=== PATIENT | female | born 1950 | race African-American/Black ===

== ENCOUNTER 2023-10-03 16:05 | HOS | payer OTHER, MEDICARE, SELFPAY ==
[2023-10-03 12:57] VITALS: PULSE 77; RESP 20; TEMP 36.3; O2SAT 100
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
--- NOTE | 2023-10-03 13:55 | PCCCNOTE ---
Met with RN from [facility] who states they have sent pt to ER for behaviours that are difficult to control. Pt currently on hospice through [facility] at home. RN has spoken to Dr Kamara who has accepted her for [facility] admission. Pt to be admitted under [facility] and once medication adjusted to control behavious, plan is for pt to discharge home with [facility] following again.
[2023-10-03] MEDS: LORazepam INJ (*CRX) 2 MG/ML VIAL 0.5 MG IV PUSH (14:19)
[2023-10-03] MEDS: HALOPERIDOL LACTATE 5 MG/ML VIAL IM (15:09)
--- NOTE | 2023-10-03 15:10 | PC.NURSE ---
Pt very agitated, uncooperative, keep getting out of bed, unstable gait.
[2023-10-03 16:08] VITALS: BP 128/66; PULSE 62; RESP 12; TEMP 36.8; O2SAT 100
[2023-10-03] MEDS: MORPHINE SULFATE ORAL CONC SOL (*CRX) 10 MG/0.5 ML SYRINGE 5 MG PO (16:56)
--- NOTE | 2023-10-03 18:09 | ADMGEN ---
This patient, Ashanti Cai, was admitted to [facility] at 1530. Report received from [facility] Palm. Patient/family oriented to hospital policies and general routines including ID bracelet, bed and alarms, visiting hours, pain management, procedures, bathroom and other care routines, personal items, smoking policy, room service/diet, and visiting hours. Information on how to activate the Rapid Response Team has been discussed. Patient/Family are encouraged to report perceived risks to care and to ask questions if they do not understand what they are told or what they should do.
[2023-10-03 20:04] VITALS: BP 107/54; PULSE 60; RESP 18; TEMP 36.3; O2SAT 100
[2023-10-04] MEDS: MORPHINE SULFATE ORAL CONC SOL (*CRX) 10 MG/0.5 ML SYRINGE 5 MG PO ×4 (03:24→23:59)
[2023-10-04] MEDS: LORazepam INJ (*CRX) 2 MG/ML VIAL 1 MG IV PUSH ×2 (03:26→14:41)
[2023-10-04] MEDS: ARTIFICIAL TEARS OPHTH SOLN 15 ML BOTTLE 1 DROP EACH EYE (03:39)
[2023-10-04] MEDS: HALOPERIDOL LACTATE 5 MG/ML VIAL IM ×2 (04:03→20:27)
[2023-10-04] MEDS: HALOPERIDOL 5 MG TABLET PO (10:37)
--- NOTE | 2023-10-04 11:31 | PM.IMHP ---
H&P: HPI History of Present Illness Date/Time: 10/04/23 11:31 Chief Complaint: Uncontrolled agitation Narrative: This 73-year-old elderly female with history of multiple small strokes and cerebral atherosclerosis with associated dementia was admitted to hospice in the recent past due to her declining appetite and functional status associated with significant weight loss. During the past week she is eating minimal amounts and drinking very little. She has become extremely agitated and paranoid and physically violent. She was admitted [facility] yesterday for control of symptoms. Intramuscular Haldol and Ativan sedated her initially and scheduled morphine Ativan and Haldol were ordered. Because she was sleeping during the night the staff did not administer medications. She became more agitated. Utilization of p.r.n. medications and resumption of schedule medications this morning has induced a mental status seemingly free of paranoid delusions and violent inclinations. Review of Systems Review of Systems: ROS unobtainable: Yes unobtainable due to medical condition PMFSH Past Medical History Medical History (Updated 10/04/23 @ 11:34 by Edgar Stephens MD) Cerebral atherosclerosis Vascular dementia with agitation Family History Family History Father No problems noted. Mother No problems noted. Social History Social History (Updated 10/04/23 @ 11:33 by Edgar Stephens MD) Social History: Resides with spouse. DNR and under hospice care prior to this admission. Smoking status: Smoker, status unknown Alcohol intake: unknown Substance use: unknown Meds Home Medications and Allergies Allergies Allergy/AdvReac Type Severity Reaction Status Date / Time No Known Allergies Allergy Verified 10/03/23 16:33 Vital Signs Vital Signs - 24 hr 10/03/23 16:08 10/03/23 15:30 10/03/23 20:04 Temperature 98.2 F 97.4 F L Pulse Rate 62 60 Respiratory Rate 12 18 Blood Pressure 128/66 107/54 L Pulse Oximetry 100 100 Oxygen Delivery Room Air 10/03/23 21:00 10/04/23 08:00 Temperature Pulse Rate Respiratory Rate Blood Pressure Pulse Oximetry Oxygen Delivery Room Air Room Air Exam Narrative: General: Gaunt elderly female resting comfortably in hospital bed. Eyes: Nonicteric. Oral: Mucosa pink moist and intact. Neck: No JVD. Chest: Clear to auscultation. Effort normal. Heart: Normal S1 and S2. Rate regular. No audible murmurs or gallops. Abdomen: Bowel sounds active. Soft. Nontender. No mass palpable. Extremities: No pitting edema. Musculoskeletal: No gross deformity to visual inspection. Neurologic: Cranial nerves symmetric to visual inspection. Psychological: Drowsy but arouses to verbal or tactile stimuli. Responds with monosyllabic words. Does not follow commands. Assessment and Plan Assessment and plan (1) Palliative care encounter: Code(s): Z51.5 - Encounter for palliative care Status: Acute Assessment and Plan: Meets inpatient hospice criteria due to inability to control agitation and psychosis without parenteral medications. October 04: Symptoms manage well with a low paired all, lorazepam, morphine. Await disposition decision. (2) Vascular dementia with agitation: Code(s): F01.511 - Vascular dementia, unspecified severity, with agitation Status: Acute (3) Cerebral atherosclerosis: Code(s): I67.2 - Cerebral atherosclerosis Status: Acute
[2023-10-04] MEDS: LORazepam (*CRX) 1 MG TABLET PO ×2 (12:16→17:07)
[2023-10-04 14:30] VITALS: BP 110/55; PULSE 66; RESP 14; TEMP 36.6; O2SAT 99
[2023-10-04 20:00] VITALS: BP 130/59; PULSE 73; RESP 18; TEMP 36.4; O2SAT 100
[2023-10-05] MEDS: LORazepam INJ (*CRX) 2 MG/ML VIAL 1 MG IV PUSH (00:05)
[2023-10-05] MEDS: MORPHINE SULFATE ORAL CONC SOL (*CRX) 10 MG/0.5 ML SYRINGE 5 MG PO ×3 (04:02→15:07)
[2023-10-05] MEDS: ARTIFICIAL TEARS OPHTH SOLN 15 ML BOTTLE 1 DROP EACH EYE ×2 (04:04→14:56)
[2023-10-05] MEDS: HALOPERIDOL 5 MG TABLET PO (09:02)
[2023-10-05 09:26] VITALS: BP 128/63
[2023-10-05] MEDS: LORazepam (*CRX) 1 MG TABLET PO ×2 (11:16→16:59)
[2023-10-05 14:54] VITALS: PULSE 105; RESP 15; TEMP 37.1; O2SAT 98
--- NOTE | 2023-10-05 15:51 | PM.IMPN ---
Progress Note: A&P Assessment and Plan (1) Palliative care encounter: Code(s): Z51.5 - Encounter for palliative care Status: Acute Assessment and Plan: Meets inpatient hospice criteria due to inability to control agitation and psychosis without parenteral medications. October 04: Symptoms manage well with a low paired all, lorazepam, morphine. Await disposition decision. October 05: Plan for discharge once symptoms are managed well for 24 hours with plan for Haldol Decanoate as outpatient. (2) Vascular dementia with agitation: Code(s): F01.511 - Vascular dementia, unspecified severity, with agitation Status: Acute (3) Cerebral atherosclerosis: Code(s): I67.2 - Cerebral atherosclerosis Status: Acute Subjective Date/time seen: 10/05/23 15:51 Interval history: Required prn doses of medication overnight due to scheduled meds being held because she was sleeping and not responding even to sternal rub. No PO intake other than meds. No agitation when receiving. Review of Systems Review of Systems: ROS unobtainable: Yes unobtainable due to medical condition Exam Narrative: General: Gaunt elderly female resting comfortably in hospital bed. Eyes: Nonicteric. Oral: Mucosa pink moist and intact. Neck: No JVD. Chest: Clear to auscultation. Effort normal. Heart: Normal S1 and S2. Rate regular. No audible murmurs or gallops. Abdomen: Bowel sounds active. Soft. Nontender. No mass palpable. Extremities: No pitting edema. Musculoskeletal: No gross deformity to visual inspection. Neurologic: Cranial nerves symmetric to visual inspection. Psychological: Drowsy but arouses to verbal or tactile stimuli. Responds with monosyllabic words. Does not follow commands. Objective Data Vital Signs Vital Signs: Vital Signs - 24 hr 10/04/23 20:00 10/04/23 20:00 10/05/23 09:26 Temperature 97.5 F L Pulse Rate 73 Respiratory Rate 18 Blood Pressure 130/59 L 128/63 Pulse Oximetry 100 Oxygen Delivery Room Air 10/05/23 08:00 10/05/23 14:54 Temperature 98.7 F Pulse Rate 105 H Respiratory Rate 15 Blood Pressure Pulse Oximetry 98 Oxygen Delivery Room Air Intake/Output Intake/Output: Intake & Output 10/02/23 10/03/23 10/04/23 10/05/23 23:59 23:59 23:59 23:59 Intake Total 0 120 Balance 0 120 Meds/Results Medications: Active Medications Generic Name Dose Route Start Last Admin Trade Name Freq PRN Reason Stop Dose Admin Acetaminophen 650 mg 10/03/23 15:50 Acetaminophen 650 Mg Suppository RECTAL Q4H PRN Fever Artificial Tears 1 drop 10/03/23 15:50 10/05/23 14:56 Artificial Tears Ophth Soln 15 Ml Bottle EACH EYE 1 drop Q12H JANEE Administration Artificial Tears 1 drop 10/03/23 15:49 Artificial Tears Ophth Soln 15 Ml Bottle EACH EYE PRN PRN Dry Eye(s) Bisacodyl 10 mg 10/03/23 15:50 Bisacodyl 10 Mg Suppository RECTAL DAILY PRN Constipation Glycopyrrolate 0.1 mg 10/03/23 15:50 Glycopyrrolate Inj (*Sp) 0.2 Mg/Ml Vial IV PUSH Q4H PRN secretions Haloperidol 5 mg 10/03/23 21:00 10/05/23 09:02 Haloperidol 5 Mg Tablet PO 5 mg Q12HR JANEE Administration Haloperidol Lactate 5 mg 10/03/23 15:45 10/04/23 20:27 Haloperidol Lactate 5 Mg/Ml Vial IM 5 mg Q6H PRN Administration AGITATION Lorazepam 1 mg 10/03/23 18:00 10/05/23 11:16 Lorazepam (*Crx) 1 Mg Tablet PO 1 mg Q6H JANEE Administration Lorazepam 1 mg 10/03/23 15:43 10/05/23 00:05 Lorazepam Inj (*Crx) 2 Mg/Ml Vial IV PUSH 1 mg Q4H PRN Administration ANXIETY/AGITATION Morphine Sulfate 5 mg 10/03/23 16:00 10/05/23 15:07 Morphine Sulfate Oral Conc Rosy (*Crx) 10 Mg/0.5 Ml Syringe PO 5 mg Q6H JANEE Administration Morphine Sulfate 2 mg 10/03/23 15:46 Morphine Sulfate (*Crx) 2 Mg/Ml Inj IV PUSH Q2H PRN PAIN/DYSPNEA Prochlorperazine Edisylate
[2023-10-05 19:40] VITALS: BP 115/57; PULSE 109; RESP 16; TEMP 36.3; O2SAT 100
[2023-10-05 19:43] VITALS: BMI 11.5
[2023-10-06] MEDS: MORPHINE SULFATE ORAL CONC SOL (*CRX) 10 MG/0.5 ML SYRINGE 5 MG PO ×4 (00:47→22:51)
[2023-10-06] MEDS: ARTIFICIAL TEARS OPHTH SOLN 15 ML BOTTLE 1 DROP EACH EYE (03:55)
[2023-10-06 04:00] VITALS: BP 126/46; PULSE 81; RESP 16; TEMP 36.4; O2SAT 99
[2023-10-06 08:50] VITALS: BP 114/48; PULSE 77; RESP 14; TEMP 36.2; O2SAT 98
[2023-10-06] MEDS: LORazepam INJ (*CRX) 2 MG/ML VIAL 1 MG IV PUSH (09:41)
--- NOTE | 2023-10-06 12:53 | PM.IMPN ---
Progress Note: A&P Assessment and Plan (1) Palliative care encounter: Code(s): Z51.5 - Encounter for palliative care Status: Acute Assessment and Plan: Meets inpatient hospice criteria due to inability to control agitation and psychosis without parenteral medications. October 04: Symptoms manage well with a low paired all, lorazepam, morphine. Await disposition decision. October 05: Plan for discharge once symptoms are managed well for 24 hours with plan for Haldol Decanoate as outpatient. October 06: Trial of medication reduction initiated per family request. Discussed with hospice and floor RN's. Discussed with her spouse, Kun, at bedside. (2) Vascular dementia with agitation: Code(s): F01.511 - Vascular dementia, unspecified severity, with agitation Status: Acute (3) Cerebral atherosclerosis: Code(s): I67.2 - Cerebral atherosclerosis Status: Inactive Subjective Date/time seen: 10/06/23 12:53 Interval history: Family wishes to decrease medications to determine whether she will eat. She 1 cup of pudding last evening and 1 cup of applesauce earlier today. Some choking was noted by staff while family was feeding her. Review of Systems Review of Systems: ROS unobtainable: Yes unobtainable due to medical condition Exam Narrative: General: Gaunt elderly female resting comfortably in hospital bed. Eyes: Closed. Oral: Mucosa pink moist and intact. Neck: No JVD. Chest: Clear to auscultation. Effort normal. Heart: Normal S1 and S2. Rate regular. No audible murmurs or gallops. Abdomen: Bowel sounds active. Soft. Nontender. No mass palpable. Extremities: No pitting edema. Musculoskeletal: No gross deformity to visual inspection. Neurologic: Cranial nerves symmetric to visual inspection. Psychological: Sleeping and minimally responsive to verbal and tactile stimuli. Objective Data Vital Signs Vital Signs: Vital Signs - 24 hr 10/05/23 14:54 10/05/23 19:40 10/05/23 20:00 Temperature 98.7 F 97.4 F L Pulse Rate 105 H 109 H Respiratory Rate 15 16 Blood Pressure 115/57 L Pulse Oximetry 98 100 Oxygen Delivery Room Air 10/06/23 04:00 10/06/23 08:50 10/06/23 08:00 Temperature 97.6 F 97.2 F L Pulse Rate 81 77 Respiratory Rate 16 14 Blood Pressure 126/46 L 114/48 L Pulse Oximetry 99 98 Oxygen Delivery Room Air Intake/Output Intake/Output: Intake & Output 10/03/23 10/04/23 10/05/23 10/06/23 23:59 23:59 23:59 23:59 Intake Total 0 120 0 Balance 0 120 0 Meds/Results Medications: Active Medications Generic Name Dose Route Start Last Admin Trade Name Freq PRN Reason Stop Dose Admin Acetaminophen 650 mg 10/03/23 15:50 Acetaminophen 650 Mg Suppository RECTAL Q4H PRN Fever Artificial Tears 1 drop 10/03/23 15:50 10/06/23 03:55 Artificial Tears Ophth Soln 15 Ml Bottle EACH EYE 1 drop Q12H JANEE Administration Artificial Tears 1 drop 10/03/23 15:49 Artificial Tears Ophth Soln 15 Ml Bottle EACH EYE PRN PRN Dry Eye(s) Bisacodyl 10 mg 10/03/23 15:50 Bisacodyl 10 Mg Suppository RECTAL DAILY PRN Constipation Glycopyrrolate 0.1 mg 10/03/23 15:50 Glycopyrrolate Inj (*Sp) 0.2 Mg/Ml Vial IV PUSH Q4H PRN secretions Haloperidol 5 mg 10/06/23 21:00 Haloperidol 5 Mg Tablet PO QHS JANEE Haloperidol Lactate 5 mg 10/03/23 15:45 10/04/23 20:27 Haloperidol Lactate 5 Mg/Ml Vial IM 5 mg Q6H PRN Administration AGITATION Lorazepam 1 mg 10/03/23 15:43 10/06/23 09:41 Lorazepam Inj (*Crx) 2 Mg/Ml Vial IV PUSH 1 mg Q4H PRN Administration ANXIETY/AGITATION Morphine Sulfate 2 mg 10/03/23 15:46 Morphine Sulfate (*Crx) 2 Mg/Ml Inj IV PUSH Q2H PRN PAIN/DYSPNEA Prochlorperazine Edisylate 10 mg 10/03/23 15:48 Prochlorperazine Edisylate 10 Mg/2 Ml Vial IV PUSH Q4H PRN Nausea And Vomiting
[2023-10-06] MEDS: LORazepam (*CRX) 0.5 MG TABLET PO (18:42)
[2023-10-06 21:23] VITALS: BP 142/50; PULSE 106; RESP 16; TEMP 36.7; O2SAT 95
[2023-10-06] MEDS: HALOPERIDOL 5 MG TABLET PO (22:52)
[2023-10-07] MEDS: LORazepam (*CRX) 0.5 MG TABLET PO ×3 (01:01→12:24)
[2023-10-07 08:00] VITALS: BP 114/48; PULSE 75; RESP 14; TEMP 36.1; O2SAT 98
[2023-10-07] MEDS: MORPHINE SULFATE ORAL CONC SOL (*CRX) 10 MG/0.5 ML SYRINGE 5 MG PO (08:07)
[2023-10-07] MEDS: ARTIFICIAL TEARS OPHTH SOLN 15 ML BOTTLE 1 DROP EACH EYE (12:24)
[2023-10-07] MEDS: LORazepam INJ (*CRX) 2 MG/ML VIAL 1 MG IV PUSH (17:19)
--- NOTE | 2023-10-07 19:31 | PM.IMPN ---
Progress Note: A&P Assessment and Plan (1) Palliative care encounter: Code(s): Z51.5 - Encounter for palliative care Status: Acute Assessment and Plan: Meets inpatient hospice criteria due to inability to control agitation and psychosis without parenteral medications. October 04: Symptoms manage well with a low paired all, lorazepam, morphine. Await disposition decision. October 05: Plan for discharge once symptoms are managed well for 24 hours with plan for Haldol Decanoate as outpatient. October 06: Trial of medication reduction initiated per family request. Discussed with hospice and floor RN's. Discussed with her spouse, Kun, at bedside. October 07: Meet inpatient hospice criteria due to intermittently requiring parenteral medications for control of agitation. Continue to seek balance between sedation and nutrition and socialization. Discussed care and prognosis with spouse at bedside. Await disposition. Subjective Date/time seen: 10/07/23 19:31 Interval history: Becomes agitated in the afternoons and requires p.r.n. dosing. Ate 1 cup of ice cream and some bites of mashed potatoes and a half cup of tea today according to her spouse was at bedside. Currently she is sleeping peacefully. Spouse states that he and the family have chosen [facility] [place], [place]. They await acceptance. Review of Systems Review of Systems: ROS unobtainable: Yes unobtainable due to medical condition Exam Narrative: General: Gaunt elderly female resting comfortably in hospital bed. Eyes: Closed. Oral: Mucosa pink moist and intact. Neck: No JVD. Chest: Clear to auscultation. Effort normal. Heart: Normal S1 and S2. Rate regular. No audible murmurs or gallops. Abdomen: Bowel sounds active. Soft. Nontender. No mass palpable. Extremities: No pitting edema. Musculoskeletal: No gross deformity to visual inspection. Neurologic: Cranial nerves symmetric to visual inspection. Psychological: Sleeping and minimally responsive to verbal and tactile stimuli. Objective Data Vital Signs Vital Signs: Vital Signs - 24 hr 10/06/23 21:23 10/07/23 08:00 Temperature 98.0 F 97.0 F L Pulse Rate 106 H 75 Respiratory Rate 16 14 Blood Pressure 142/50 H 114/48 L Pulse Oximetry 95 98 Intake/Output Intake/Output: Intake & Output 10/04/23 10/05/23 10/06/23 10/07/23 23:59 23:59 23:59 23:59 Intake Total 120 0 0 Balance 120 0 0 Meds/Results Medications: Active Medications Generic Name Dose Route Start Last Admin Trade Name Freq PRN Reason Stop Dose Admin Acetaminophen 650 mg 10/03/23 15:50 Acetaminophen 650 Mg Suppository RECTAL Q4H PRN Fever Artificial Tears 1 drop 10/03/23 15:49 Artificial Tears Ophth Soln 15 Ml Bottle EACH EYE PRN PRN Dry Eye(s) Artificial Tears 1 drop 10/07/23 00:00 10/07/23 00:59 Artificial Tears Ophth Soln 15 Ml Bottle EACH EYE Not Given Q12H JANEE Bisacodyl 10 mg 10/03/23 15:50 Bisacodyl 10 Mg Suppository RECTAL DAILY PRN Constipation Glycopyrrolate 0.1 mg 10/03/23 15:50 Glycopyrrolate Inj (*Sp) 0.2 Mg/Ml Vial IV PUSH Q4H PRN secretions Haloperidol 5 mg 10/06/23 21:00 10/06/23 22:52 Haloperidol 5 Mg Tablet PO 5 mg QHS JANEE Administration Haloperidol Lactate 5 mg 10/03/23 15:45 10/04/23 20:27 Haloperidol Lactate 5 Mg/Ml Vial IM 5 mg Q6H PRN Administration AGITATION Lorazepam 1 mg 10/03/23 15:43 10/07/23 17:19 Lorazepam Inj (*Crx) 2 Mg/Ml Vial IV PUSH 1 mg Q4H PRN Administration ANXIETY/AGITATION Lorazepam 0.5 mg 10/06/23 12:52 10/07/23 05:42 Lorazepam (*Crx) 0.5 Mg Tablet PO 0.5 mg Q6HR JANEE Administration Morphine Sulfate 2 mg 10/03/23 15:46 Morphine Sulfate (*Crx) 2 Mg/Ml Inj IV PUSH Q2H PRN PAIN/DYSPNEA Morphine Sulfate 5 mg 10/06/23 21:00 10/07/23 08:07 Morphine Sulfate Oral Conc Rosy (*Crx) 10
--- NOTE | 2023-10-07 20:43 | PC.NURSE ---
Pt more awake today. Took a couple of bites from this RN at lunch. Became very agitated at aide attempting to feed her, telling her she better back off. Approximately 1700 pt became increasingly more agitated. Unable to give PO, so returned PO med and gave IVP PRN dose of ativan. agreeable and at bedside. made aware.
[2023-10-07 20:46] VITALS: BP 117/58; PULSE 66; RESP 14; O2SAT 99
[2023-10-08] MEDS: LORazepam (*CRX) 0.5 MG TABLET PO ×4 (01:17→23:48)
[2023-10-08] MEDS: MORPHINE SULFATE ORAL CONC SOL (*CRX) 10 MG/0.5 ML SYRINGE 5 MG PO ×2 (09:17→21:42)
--- NOTE | 2023-10-08 12:34 | PM.DS ---
DS: Admitting Diagnosis Discharge Date 10/18/2023 Admitting Diagnosis cerebrovascular disease with vascular dementia and uncontrolled behaviors DS: Discharge Diagnosis Discharge Diagnosis (1) Palliative care encounter: Code(s): Z51.5 - Encounter for palliative care Status: Acute Assessment and Plan: Meets inpatient hospice criteria due to inability to control agitation and psychosis without parenteral medications. October 04: Symptoms manage well with a low paired all, lorazepam, morphine. Await disposition decision. October 05: Plan for discharge once symptoms are managed well for 24 hours with plan for Haldol Decanoate as outpatient. October 06: Trial of medication reduction initiated per family request. Discussed with hospice and floor RN's. Discussed with her spouse, Kun, at bedside. October 07: Meet inpatient hospice criteria due to intermittently requiring parenteral medications for control of agitation. Continue to seek balance between sedation and nutrition and socialization. Discussed care and prognosis with spouse at bedside. Await disposition. October 08: Denied admission to [facility] in [place] but accepted at [facility] in [place]. Unable to transfer due to protocol COVID-19 swab testing POSITIVE. October 09: Attempted to contact spouse, Kun, by phone and left VM. Increased medication due to agitation and potential injury. Morphine to 5 mg po q 8hr and Ativan to 1 mg po q 8hr. October 12: Comfortable. Anticipated discharge 10/13. October 13: Remains comfortable [facility] requires 10 day isolation time after COVID diagnosis. Discussed care with spouse at bedside. October 14: Alternative discharge [facility] to start as [facility] not acceptable to spouse as he feels it is not [facility] or Mrs. Cai. He is unable to care for her home due to his chronic illnesses and her decline in condition. She will continue on her 10-day COVID as inpatient as required by [facility]. October 15: Discussed with , Kun, at bedside that he feels [facility] is the only safe option for discharge for her. Due to COVID-19, they will not admit her until October 18. October 17: Anticipate discharge to [facility] 10/18. DS: Summary Hospital Course Reason for hospitalization: uncontrolled agitaion Hospital Course: Admitted to [facility] 10/04 due to uncontrolled agitation and paranoid psychosis. Symptoms were well controlled with palliative sedation utilizing scheduled haloperidol, lorazepam, and morphine. However, her spouse wished that she be more alertand able to eat, so at his request her medications were reduced 50%. Subsequently, although she did eat 1-2 cups of soft food per day, she also required multiple doses of prn lorazepam due to agitation, trying to undress, get out of bed. She was diagnosed with COVID-19 10 days prior to discharge and was required by AL to wait an additional 10 days prior to discharge. She was accepted for [facility] admission on 10/18/2023 and was discharged to [facility] for further management of her symptoms. Time Spent with Patient Time attestation: Total time spent providing and/or coordinating discharge services: Exam Narrative: Resting comfortably Discharge Plan Discharge Discharging Clinician: Edgar Stephens Patient Disposition: Hospice - Medical Facility Activity: other - see discharge instructions Diet: as tolerated Discharge Instructions: Bedrest. Liquids and soft foods as tolerated. Stand Alone Forms: General Discharge Information Discharge Medications: New Artificial Tears([id number]) 1-0.2-0.2 % Drops 1 drp EACH EYE Q12H Qty: 15 0RF bisacodyl 10 mg Suppository 10 mg RECTAL DAILY PRN (Reason: Constipation) Qty: 5 0RF haloperidol 5 mg Tablet 5 mg PO QPM Qty: 14 0RF lorazepam 0.5 mg Tablet 1 mg PO Q12H Qty: 14 0RF lorazep
[2023-10-08 13:01] VITALS: BP 123/56; PULSE 96; RESP 19; TEMP 36.6; O2SAT 95
[2023-10-08 16:23] LABS: SARS-CoV-2 RNA PCR Positive (Negative)
--- NOTE | 2023-10-08 19:29 | PM.IMPN ---
Progress Note: A&P Assessment and Plan (1) Palliative care encounter: Code(s): Z51.5 - Encounter for palliative care Status: Acute Assessment and Plan: Meets inpatient hospice criteria due to inability to control agitation and psychosis without parenteral medications. October 04: Symptoms manage well with a low paired all, lorazepam, morphine. Await disposition decision. October 05: Plan for discharge once symptoms are managed well for 24 hours with plan for Haldol Decanoate as outpatient. October 06: Trial of medication reduction initiated per family request. Discussed with hospice and floor RN's. Discussed with her spouse, Kun, at bedside. October 07: Meet inpatient hospice criteria due to intermittently requiring parenteral medications for control of agitation. Continue to seek balance between sedation and nutrition and socialization. Discussed care and prognosis with spouse at bedside. Await disposition. October 08: Denied admission to [facility] in [place] but accepted at [facility] in [place]. Unable to transfer due to protocol COVID-19 swab testing POSITIVE. (2) COVID-19: Code(s): U07.1 - COVID-19 Status: Acute Assessment and Plan: Asymptomatic Subjective Date/time seen: 10/08/23 19:29 Interval history: Late afternoon agitation beginning. Spat out her scheduled PM meds. Minimal Po intake. Review of Systems Review of Systems: ROS unobtainable: Yes unobtainable due to medical condition Exam Narrative: General:? Gaunt elderly female resting comfortably in hospital bed. Eyes:? Closed. Oral:? Mucosa pink moist and intact. Neck:? No JVD. Chest:? Clear to auscultation.? Effort normal. Heart:? Normal S1 and S2.? Rate regular.? No audible murmurs or gallops. Abdomen:? Bowel sounds active.? Soft.? Nontender.? No mass palpable. Extremities:? No pitting edema.? Musculoskeletal:? No gross deformity to visual inspection. Neurologic:? Cranial nerves symmetric to visual inspection. Psychological:? Eyes closed and responds to verbal and tactile stimuli with unintelligible muttering. ? Objective Data Vital Signs Vital Signs: Vital Signs - 24 hr 10/07/23 20:46 10/08/23 13:01 Temperature 97.9 F Pulse Rate 66 96 Respiratory Rate 14 19 Blood Pressure 117/58 L 123/56 L Pulse Oximetry 99 95 Intake/Output Intake/Output: Intake & Output 10/05/23 10/06/23 10/07/23 10/08/23 23:59 23:59 23:59 23:59 Intake Total 0 0 240 Balance 0 0 240 Meds/Results Medications: Active Medications Generic Name Dose Route Start Last Admin Trade Name Freq PRN Reason Stop Dose Admin Acetaminophen 650 mg 10/03/23 15:50 Acetaminophen 650 Mg Suppository RECTAL Q4H PRN Fever Artificial Tears 1 drop 10/03/23 15:49 Artificial Tears Ophth Soln 15 Ml Bottle EACH EYE PRN PRN Dry Eye(s) Artificial Tears 1 drop 10/07/23 00:00 10/08/23 14:16 Artificial Tears Ophth Soln 15 Ml Bottle EACH EYE Not Given Q12H JANEE Bisacodyl 10 mg 10/03/23 15:50 Bisacodyl 10 Mg Suppository RECTAL DAILY PRN Constipation Glycopyrrolate 0.1 mg 10/03/23 15:50 Glycopyrrolate Inj (*Sp) 0.2 Mg/Ml Vial IV PUSH Q4H PRN secretions Haloperidol 5 mg 10/08/23 18:00 Haloperidol 5 Mg Tablet PO QPM JANEE Haloperidol Lactate 5 mg 10/03/23 15:45 10/04/23 20:27 Haloperidol Lactate 5 Mg/Ml Vial IM 5 mg Q6H PRN Administration AGITATION Lorazepam 1 mg 10/03/23 15:43 10/07/23 17:19 Lorazepam Inj (*Crx) 2 Mg/Ml Vial IV PUSH 1 mg Q4H PRN Administration ANXIETY/AGITATION Lorazepam 0.5 mg 10/06/23 12:52 10/08/23 18:27 Lorazepam (*Crx) 0.5 Mg Tablet PO 0.5 mg Q6HR JANEE Administration Morphine Sulfate 2 mg 10/03/23 15:46 Morphine Sulfate (*Crx) 2 Mg/Ml Inj IV PUSH Q2H PRN PAIN/DYSPNEA Morphine Sulfate 5 mg 10/06/23 21:00 10/08/23 09:17 Morphine Sulfate Oral Conc S
[2023-10-08 20:00] VITALS: BP 131/48; PULSE 89; RESP 12; TEMP 36.3; O2SAT 99
[2023-10-09 02:30] VITALS: BP 130/50; PULSE 90; RESP 18; TEMP 36.1; O2SAT 75
[2023-10-09] MEDS: LORazepam (*CRX) 0.5 MG TABLET PO ×2 (05:34→18:46)
[2023-10-09 10:15] VITALS: BP 152/65; PULSE 95; RESP 16; TEMP 36.4; O2SAT 90
[2023-10-09] MEDS: MORPHINE SULFATE (*CRX) 2 MG/ML INJ IV PUSH (10:53)
--- NOTE | 2023-10-09 18:54 | PM.IMPN ---
Progress Note: A&P Assessment and Plan (1) Palliative care encounter: Code(s): Z51.5 - Encounter for palliative care Status: Acute Assessment and Plan: Meets inpatient hospice criteria due to inability to control agitation and psychosis without parenteral medications. October 04: Symptoms manage well with a low paired all, lorazepam, morphine. Await disposition decision. October 05: Plan for discharge once symptoms are managed well for 24 hours with plan for Haldol Decanoate as outpatient. October 06: Trial of medication reduction initiated per family request. Discussed with hospice and floor RN's. Discussed with her spouse, Kun, at bedside. October 07: Meet inpatient hospice criteria due to intermittently requiring parenteral medications for control of agitation. Continue to seek balance between sedation and nutrition and socialization. Discussed care and prognosis with spouse at bedside. Await disposition. October 08: Denied admission to [facility] in [place] but accepted at [facility] in [place]. Unable to transfer due to protocol COVID-19 swab testing POSITIVE. October 09: Attempted to contact spouse, Kun, by phone and left VM. Increased medication due to agitation and potential injury. Morphine to 5 mg po q 8hr and Ativan to 1 mg po q 8hr. (2) COVID-19: Code(s): U07.1 - COVID-19 Status: Acute Assessment and Plan: Asymptomatic Subjective Date/time seen: 10/09/23 12:15 Interval history: Fell this AM due to agitation, climbing out of bed. Received MS 2 mg IV x 1 afterwards. No family was at bedside. No PO intake today. Review of Systems Review of Systems: ROS unobtainable: Yes unobtainable due to medical condition Exam Narrative: General:? Gaunt elderly female resting comfortably in hospital bed. Eyes:? Closed. Oral:? Mucosa pink moist and intact. Neck:? No JVD. Chest:? Clear to auscultation.? Effort normal. Heart:? Normal S1 and S2.? Rate regular.? No audible murmurs or gallops. Abdomen:? Bowel sounds active.? Soft.? Nontender.? No mass palpable. Extremities:? No pitting edema.? Musculoskeletal:? No gross deformity to visual inspection. Neurologic:? Cranial nerves symmetric to visual inspection. Psychological:? Sleeping and unresponsive to verbal or tactile stimuli. ? Objective Data Vital Signs Vital Signs: Vital Signs - 24 hr 10/08/23 20:00 10/09/23 02:30 Temperature 97.3 F L 97.0 F L Pulse Rate 89 90 Respiratory Rate 12 18 Blood Pressure 131/48 L 130/50 L Pulse Oximetry 99 75 L Intake/Output Intake/Output: Intake & Output 10/06/23 10/07/23 10/08/23 10/09/23 23:59 23:59 23:59 23:59 Intake Total 0 0 240 120 Balance 0 0 240 120 Meds/Results Medications: Active Medications Generic Name Dose Route Start Last Admin Trade Name Freq PRN Reason Stop Dose Admin Acetaminophen 650 mg 10/03/23 15:50 Acetaminophen 650 Mg Suppository RECTAL Q4H PRN Fever Artificial Tears 1 drop 10/03/23 15:49 Artificial Tears Ophth Soln 15 Ml Bottle EACH EYE PRN PRN Dry Eye(s) Artificial Tears 1 drop 10/07/23 00:00 10/08/23 23:47 Artificial Tears Ophth Soln 15 Ml Bottle EACH EYE Not Given Q12H JANEE Bisacodyl 10 mg 10/03/23 15:50 Bisacodyl 10 Mg Suppository RECTAL DAILY PRN Constipation Glycopyrrolate 0.1 mg 10/03/23 15:50 Glycopyrrolate Inj (*Sp) 0.2 Mg/Ml Vial IV PUSH Q4H PRN secretions Haloperidol 5 mg 10/08/23 18:00 10/08/23 19:51 Haloperidol 5 Mg Tablet PO Not Given QPM JANEE Haloperidol Lactate 5 mg 10/03/23 15:45 10/04/23 20:27 Haloperidol Lactate 5 Mg/Ml Vial IM 5 mg Q6H PRN Administration AGITATION Lorazepam 1 mg 10/03/23 15:43 10/07/23 17:19 Lorazepam Inj (*Crx) 2 Mg/Ml Vial IV PUSH 1 mg Q4H PRN Administration ANXIETY/AGITATION Lorazepam 0.5 mg 10/06/23 12:52 10/09/23 18:46 Lorazepam (*Crx) 0.5 Mg Tablet PO
[2023-10-09 20:00] VITALS: BP 125/52; PULSE 82; RESP 14; TEMP 37.1; O2SAT 96
[2023-10-09] MEDS: HALOPERIDOL 5 MG TABLET PO (20:05)
--- NOTE | 2023-10-09 20:05 | PC.NURSE ---
This RN obtaining consent in another room with a POA when I heard a loud thud. Approx 30 seconds later, PCT came to this RN to inform pt on floor. This RN called charge to room to finish consent as surgery on way to get patient and POA had to leave. After consent obtained, RN to bedside. Assessment performed, provider called (who called ), IV restarted, pain medication administered. Alarm resumed, pt made comfortable with no complaints. Notified house sup as charge on phone to [facility]. Plans to move to in front of nurses station to keep better eye on pt. Chair pad had been under pt, but not hooked up in to wall correctly. Chair pad alarming in room only. Pt found on right side, mumbling non-sensically (her normal means of communication). When pt arrived to room, this RN to bedside with charge to address concerns. understandably upset. He stated that he was told that there would be a housekeeper and laundry assistant 24 hours a day. I reminded him that the agreement with Dr. Stephens that this RN had been told upon receiving pt on Thursday was for someone in the family to be present 24 hours a day while attempting to lift the sedating medications. He stated that was not the agreement. He then stated he was only responsible for doing it for 24 hours. Previous nights when was leaving approx [phone], I reminded that we could get him linens to allow him to stay. On Thursday, the pt spouse had left and let me know that he had to leave to view facility and I let him know that we would provide a sitter during that time, but he would need to return to continue watching. He agreed and returned as previously agreed upon. Pt spouse stated you don't even know how long she was down for . I explained the series of events to him, allowing him to understand she was found immediately. He stated understanding, but still obviously upset. Pt monitored frequently for any pains/reactions. None noted. Report passed to nights.
[2023-10-09] MEDS: MORPHINE SULFATE ORAL CONC SOL (*CRX) 10 MG/0.5 ML SYRINGE 5 MG PO (21:34)
[2023-10-09] MEDS: LORazepam (*CRX) 1 MG TABLET PO (23:30)
[2023-10-09] MEDS: ARTIFICIAL TEARS OPHTH SOLN 15 ML BOTTLE 1 DROP EACH EYE (23:31)
[2023-10-10] MEDS: MORPHINE SULFATE ORAL CONC SOL (*CRX) 10 MG/0.5 ML SYRINGE 5 MG PO ×3 (05:05→22:36)
[2023-10-10] MEDS: LORazepam (*CRX) 1 MG TABLET PO (05:05)
--- NOTE | 2023-10-10 07:19 | PM.IMPN ---
Progress Note: A&P Assessment and Plan (1) Palliative care encounter: Code(s): Z51.5 - Encounter for palliative care Status: Acute Assessment and Plan: Meets inpatient hospice criteria due to inability to control agitation and psychosis without parenteral medications. October 04: Symptoms manage well with a low paired all, lorazepam, morphine. Await disposition decision. October 05: Plan for discharge once symptoms are managed well for 24 hours with plan for Haldol Decanoate as outpatient. October 06: Trial of medication reduction initiated per family request. Discussed with hospice and floor RN's. Discussed with her spouse, Kun, at bedside. October 07: Meet inpatient hospice criteria due to intermittently requiring parenteral medications for control of agitation. Continue to seek balance between sedation and nutrition and socialization. Discussed care and prognosis with spouse at bedside. Await disposition. October 08: Denied admission to [facility] in [place] but accepted at [facility] in [place]. Unable to transfer due to protocol COVID-19 swab testing POSITIVE. October 09: Attempted to contact spouse, Kun, by phone and left VM. Increased medication due to agitation and potential injury. Morphine to 5 mg po q 8hr and Ativan to 1 mg po q 8hr. (2) COVID-19: Code(s): U07.1 - COVID-19 Status: Acute Assessment and Plan: Asymptomatic Subjective Date/time seen: 10/10/23 07:19 Interval history: Quiet night with med changes. Review of Systems Review of Systems: ROS unobtainable: Yes unobtainable due to medical condition Exam Narrative: General:? Gaunt elderly female resting comfortably in hospital bed. Eyes:? Closed. Oral:? Mucosa pink moist and intact. Neck:? No JVD. Chest:? Clear to auscultation.? Effort normal. Heart:? Normal S1 and S2.? Rate regular.? No audible murmurs or gallops. Abdomen:? Bowel sounds active.? Soft.? Nontender.? No mass palpable. Extremities:? No pitting edema.? Musculoskeletal:? No gross deformity to visual inspection. Neurologic:? Cranial nerves symmetric to visual inspection. Psychological:? Sleeping and unresponsive to verbal or tactile stimuli. ? Objective Data Vital Signs Vital Signs: Vital Signs - 24 hr 10/09/23 10:15 10/09/23 20:00 10/09/23 20:00 Temperature 97.6 F 98.8 F Pulse Rate 95 82 Respiratory Rate 16 14 Blood Pressure 152/65 H 125/52 L Pulse Oximetry 90 96 Oxygen Delivery Room Air Intake/Output Intake/Output: Intake & Output 10/07/23 10/08/23 10/09/23 10/10/23 23:59 23:59 23:59 23:59 Intake Total 0 240 120 Balance 0 240 120 Meds/Results Medications: Active Medications Generic Name Dose Route Start Last Admin Trade Name Freq PRN Reason Stop Dose Admin Acetaminophen 650 mg 10/03/23 15:50 Acetaminophen 650 Mg Suppository RECTAL Q4H PRN Fever Artificial Tears 1 drop 10/03/23 15:49 Artificial Tears Ophth Soln 15 Ml Bottle EACH EYE PRN PRN Dry Eye(s) Artificial Tears 1 drop 10/07/23 00:00 10/09/23 23:31 Artificial Tears Ophth Soln 15 Ml Bottle EACH EYE 1 drop Q12H JANEE Administration Bisacodyl 10 mg 10/03/23 15:50 Bisacodyl 10 Mg Suppository RECTAL DAILY PRN Constipation Glycopyrrolate 0.1 mg 10/03/23 15:50 Glycopyrrolate Inj (*Sp) 0.2 Mg/Ml Vial IV PUSH Q4H PRN secretions Haloperidol 5 mg 10/08/23 18:00 10/09/23 20:05 Haloperidol 5 Mg Tablet PO 5 mg QPM JANEE Administration Haloperidol Lactate 5 mg 10/03/23 15:45 10/04/23 20:27 Haloperidol Lactate 5 Mg/Ml Vial IM 5 mg Q6H PRN Administration AGITATION Lorazepam 1 mg 10/03/23 15:43 10/07/23 17:19 Lorazepam Inj (*Crx) 2 Mg/Ml Vial IV PUSH 1 mg Q4H PRN Administration ANXIETY/AGITATION Lorazepam 1 mg 10/10/23 00:00 10/10/23 05:05 Lorazepam (*Crx) 1 Mg Tablet PO 1 mg Q6HR JANEE Administration Morphine S
[2023-10-10 08:00] VITALS: BP 122/64; PULSE 85; RESP 12; TEMP 37; O2SAT 96
[2023-10-10] MEDS: LORazepam INJ (*CRX) 2 MG/ML VIAL 1 MG IV PUSH (20:19)
[2023-10-11] MEDS: MORPHINE SULFATE ORAL CONC SOL (*CRX) 10 MG/0.5 ML SYRINGE 5 MG PO ×3 (06:30→21:15)
[2023-10-11] MEDS: LORazepam (*CRX) 1 MG TABLET PO ×4 (06:30→23:26)
[2023-10-11 08:00] VITALS: BP 130/62; PULSE 62; RESP 12; TEMP 37; O2SAT 96
[2023-10-11] MEDS: ARTIFICIAL TEARS OPHTH SOLN 15 ML BOTTLE 1 DROP EACH EYE ×2 (12:55→23:27)
--- NOTE | 2023-10-11 17:15 | PC.NURSE ---
attempted to administer haldol and ativan, family requests we wait until later to give meds
--- NOTE | 2023-10-11 17:19 | PM.IMPN ---
Progress Note: A&P Assessment and Plan (1) Palliative care encounter: Code(s): Z51.5 - Encounter for palliative care Status: Acute Assessment and Plan: Meets inpatient hospice criteria due to inability to control agitation and psychosis without parenteral medications. October 04: Symptoms manage well with a low paired all, lorazepam, morphine. Await disposition decision. October 05: Plan for discharge once symptoms are managed well for 24 hours with plan for Haldol Decanoate as outpatient. October 06: Trial of medication reduction initiated per family request. Discussed with hospice and floor RN's. Discussed with her spouse, Kun, at bedside. October 07: Meet inpatient hospice criteria due to intermittently requiring parenteral medications for control of agitation. Continue to seek balance between sedation and nutrition and socialization. Discussed care and prognosis with spouse at bedside. Await disposition. October 08: Denied admission to [facility] in [place] but accepted at [facility] in [place]. Unable to transfer due to protocol COVID-19 swab testing POSITIVE. October 09: Attempted to contact spouse, Kun, by phone and left VM. Increased medication due to agitation and potential injury. Morphine to 5 mg po q 8hr and Ativan to 1 mg po q 8hr. (2) COVID-19: Code(s): U07.1 - COVID-19 Status: Acute Assessment and Plan: Asymptomatic Subjective Date/time seen: 10/11/23 09:00 Interval history: Resting comfortably after med changes 2/3 PM. Review of Systems Review of Systems: ROS unobtainable: Yes unobtainable due to medical condition Exam Narrative: General:? Gaunt elderly female resting comfortably in hospital bed. Eyes:? Closed. Oral:? Mucosa pink moist and intact. Neck:? No JVD. Chest:? Clear to auscultation.? Effort normal. Heart:? Normal S1 and S2.? Rate regular.? No audible murmurs or gallops. Abdomen:? Bowel sounds active.? Soft.? Nontender.? No mass palpable. Extremities:? No pitting edema.? Musculoskeletal:? No gross deformity to visual inspection. Neurologic:? Cranial nerves symmetric to visual inspection. Psychological:? Sleeping and unresponsive to verbal or tactile stimuli. ? Objective Data Vital Signs Vital Signs: Vital Signs - 24 hr 10/11/23 08:00 10/11/23 08:00 Temperature 98.6 F Pulse Rate 62 Respiratory Rate 12 Blood Pressure 130/62 Pulse Oximetry 96 Oxygen Delivery Room Air Intake/Output Intake/Output: Intake & Output 10/08/23 10/09/23 10/10/23 10/11/23 23:59 23:59 23:59 23:59 Intake Total 240 120 120 Balance 240 120 120 Meds/Results Medications: Active Medications Generic Name Dose Route Start Last Admin Trade Name Freq PRN Reason Stop Dose Admin Acetaminophen 650 mg 10/03/23 15:50 Acetaminophen 650 Mg Suppository RECTAL Q4H PRN Fever Artificial Tears 1 drop 10/03/23 15:49 Artificial Tears Ophth Soln 15 Ml Bottle EACH EYE PRN PRN Dry Eye(s) Artificial Tears 1 drop 10/07/23 00:00 10/11/23 12:55 Artificial Tears Ophth Soln 15 Ml Bottle EACH EYE 1 drop Q12H JANEE Administration Bisacodyl 10 mg 10/03/23 15:50 Bisacodyl 10 Mg Suppository RECTAL DAILY PRN Constipation Glycopyrrolate 0.1 mg 10/03/23 15:50 Glycopyrrolate Inj (*Sp) 0.2 Mg/Ml Vial IV PUSH Q4H PRN secretions Haloperidol 5 mg 10/08/23 18:00 10/10/23 17:37 Haloperidol 5 Mg Tablet PO Not Given QPM JANEE Haloperidol Lactate 5 mg 10/03/23 15:45 10/04/23 20:27 Haloperidol Lactate 5 Mg/Ml Vial IM 5 mg Q6H PRN Administration AGITATION Lorazepam 1 mg 10/03/23 15:43 10/10/23 20:19 Lorazepam Inj (*Crx) 2 Mg/Ml Vial IV PUSH 1 mg Q4H PRN Administration ANXIETY/AGITATION Lorazepam 1 mg 10/10/23 00:00 10/11/23 12:55 Lorazepam (*Crx) 1 Mg Tablet PO 1 mg Q6HR JANEE Administration Morphine Sulfate 2 mg 10/03/23 15:46 02
[2023-10-11] MEDS: HALOPERIDOL 5 MG TABLET PO (18:32)
[2023-10-11 20:00] VITALS: BP 98/51; PULSE 68; RESP 12; TEMP 36.3; O2SAT 100
[2023-10-12] MEDS: LORazepam (*CRX) 1 MG TABLET PO ×3 (05:17→18:31)
[2023-10-12] MEDS: MORPHINE SULFATE ORAL CONC SOL (*CRX) 10 MG/0.5 ML SYRINGE 5 MG PO ×3 (05:17→22:28)
[2023-10-12 08:00] VITALS: BP 122/42; PULSE 95; RESP 14; TEMP 37.3; O2SAT 97
[2023-10-12] MEDS: ARTIFICIAL TEARS OPHTH SOLN 15 ML BOTTLE 1 DROP EACH EYE (12:48)
[2023-10-12] MEDS: HALOPERIDOL 5 MG TABLET PO (18:31)
[2023-10-12 20:00] VITALS: BP 130/66; PULSE 87; RESP 20; TEMP 36.5; O2SAT 98
--- NOTE | 2023-10-12 20:40 | PM.IMPN ---
Progress Note: A&P Assessment and Plan (1) Palliative care encounter: Code(s): Z51.5 - Encounter for palliative care Status: Acute Assessment and Plan: Meets inpatient hospice criteria due to inability to control agitation and psychosis without parenteral medications. October 04: Symptoms manage well with a low paired all, lorazepam, morphine. Await disposition decision. October 05: Plan for discharge once symptoms are managed well for 24 hours with plan for Haldol Decanoate as outpatient. October 06: Trial of medication reduction initiated per family request. Discussed with hospice and floor RN's. Discussed with her spouse, Kun, at bedside. October 07: Meet inpatient hospice criteria due to intermittently requiring parenteral medications for control of agitation. Continue to seek balance between sedation and nutrition and socialization. Discussed care and prognosis with spouse at bedside. Await disposition. October 08: Denied admission to [facility] in [place] but accepted at [facility] in [place]. Unable to transfer due to protocol COVID-19 swab testing POSITIVE. October 09: Attempted to contact spouse, Kun, by phone and left VM. Increased medication due to agitation and potential injury. Morphine to 5 mg po q 8hr and Ativan to 1 mg po q 8hr. October 12: Comfortable. Anticipated discharge 10/13. (2) COVID-19: Code(s): U07.1 - COVID-19 Status: Acute Assessment and Plan: Asymptomatic Subjective Date/time seen: 10/12/23 20:40 Interval history: Resting comfortably. Relatively quiet day. Review of Systems Review of Systems: ROS unobtainable: Yes unobtainable due to medical condition Exam Narrative: Sleeping soundly. Objective Data Vital Signs Vital Signs: Vital Signs - 24 hr 10/12/23 08:00 10/12/23 08:00 Temperature 99.2 F Pulse Rate 95 95 Respiratory Rate 14 14 Blood Pressure 122/42 L Pulse Oximetry 97 97 Oxygen Delivery Room Air Intake/Output Intake/Output: Intake & Output 10/09/23 10/10/23 10/11/23 10/12/23 23:59 23:59 23:59 23:59 Intake Total 120 120 0 Balance 120 120 0 Meds/Results Medications: Active Medications Generic Name Dose Route Start Last Admin Trade Name Freq PRN Reason Stop Dose Admin Acetaminophen 650 mg 10/03/23 15:50 Acetaminophen 650 Mg Suppository RECTAL Q4H PRN Fever Artificial Tears 1 drop 10/03/23 15:49 Artificial Tears Ophth Soln 15 Ml Bottle EACH EYE PRN PRN Dry Eye(s) Artificial Tears 1 drop 10/07/23 00:00 10/12/23 12:48 Artificial Tears Ophth Soln 15 Ml Bottle EACH EYE 1 drop Q12H JANEE Administration Bisacodyl 10 mg 10/03/23 15:50 Bisacodyl 10 Mg Suppository RECTAL DAILY PRN Constipation Glycopyrrolate 0.1 mg 10/03/23 15:50 Glycopyrrolate Inj (*Sp) 0.2 Mg/Ml Vial IV PUSH Q4H PRN secretions Haloperidol 5 mg 10/08/23 18:00 10/12/23 18:31 Haloperidol 5 Mg Tablet PO 5 mg QPM JANEE Administration Haloperidol Lactate 5 mg 10/03/23 15:45 10/04/23 20:27 Haloperidol Lactate 5 Mg/Ml Vial IM 5 mg Q6H PRN Administration AGITATION Lorazepam 1 mg 10/03/23 15:43 10/10/23 20:19 Lorazepam Inj (*Crx) 2 Mg/Ml Vial IV PUSH 1 mg Q4H PRN Administration ANXIETY/AGITATION Lorazepam 1 mg 10/10/23 00:00 10/12/23 18:31 Lorazepam (*Crx) 1 Mg Tablet PO 1 mg Q6HR JANEE Administration Morphine Sulfate 2 mg 10/03/23 15:46 10/09/23 10:53 Morphine Sulfate (*Crx) 2 Mg/Ml Inj IV PUSH 2 mg Q2H PRN Administration PAIN/DYSPNEA Morphine Sulfate 5 mg 10/09/23 22:00 10/12/23 17:03 Morphine Sulfate Oral Conc Rosy (*Crx) 10 Mg/0.5 Ml Syringe PO 5 mg Q8H JANEE Administration Prochlorperazine Edisylate 10 mg 10/03/23 15:48 Prochlorperazine Edisylate 10 Mg/2 Ml Vial IV PUSH Q4H PRN Nausea And Vomiting
[2023-10-13] MEDS: MORPHINE SULFATE ORAL CONC SOL (*CRX) 10 MG/0.5 ML SYRINGE 5 MG PO (06:26)
[2023-10-13] MEDS: LORazepam (*CRX) 1 MG TABLET PO ×3 (06:26→17:39)
[2023-10-13 08:00] VITALS: BP 126/48; PULSE 78; RESP 18; TEMP 36.6; O2SAT 94
[2023-10-13] MEDS: ARTIFICIAL TEARS OPHTH SOLN 15 ML BOTTLE 1 DROP EACH EYE (11:39)
--- NOTE | 2023-10-13 16:04 | PM.IMPN ---
Progress Note: A&P Assessment and Plan (1) Palliative care encounter: Code(s): Z51.5 - Encounter for palliative care Status: Acute Assessment and Plan: Meets inpatient hospice criteria due to inability to control agitation and psychosis without parenteral medications. October 04: Symptoms manage well with a low paired all, lorazepam, morphine. Await disposition decision. October 05: Plan for discharge once symptoms are managed well for 24 hours with plan for Haldol Decanoate as outpatient. October 06: Trial of medication reduction initiated per family request. Discussed with hospice and floor RN's. Discussed with her spouse, Kun, at bedside. October 07: Meet inpatient hospice criteria due to intermittently requiring parenteral medications for control of agitation. Continue to seek balance between sedation and nutrition and socialization. Discussed care and prognosis with spouse at bedside. Await disposition. October 08: Denied admission to [facility] in [place] but accepted at [facility] in [place]. Unable to transfer due to protocol COVID-19 swab testing POSITIVE. October 09: Attempted to contact spouse, Kun, by phone and left VM. Increased medication due to agitation and potential injury. Morphine to 5 mg po q 8hr and Ativan to 1 mg po q 8hr. October 12: Comfortable. Anticipated discharge 10/13. October 13: Remains comfortable [facility] 10 day isolation time after COVID diagnosis. Discussed care with spouse at bedside. (2) COVID-19: Code(s): U07.1 - COVID-19 Status: Acute Assessment and Plan: Asymptomatic Subjective Date/time seen: 10/13/23 16:04 Interval history: Pulled IV out earlier today please feel otherwise. Ate a few bites of potatoes ground meat and corn. Review of Systems Review of Systems: ROS unobtainable: Yes unobtainable due to medical condition Exam Narrative: General:? Gaunt elderly female resting comfortably in hospital bed. Eyes:? Closed. Oral:? Mucosa pink moist and intact. Neck:? No JVD. Chest:? Clear to auscultation.? Effort normal. Heart:? Normal S1 and S2.? Rate regular.? No audible murmurs or gallops. Abdomen:? Bowel sounds active.? Soft.? Nontender.? No mass palpable. Extremities:? No pitting edema.? Musculoskeletal:? No gross deformity to visual inspection. Neurologic:? Cranial nerves symmetric to visual inspection. Psychological:? Sleeping and unresponsive to verbal or tactile stimuli. ? Objective Data Vital Signs Vital Signs: Vital Signs - 24 hr 10/12/23 20:00 10/13/23 08:00 Temperature 97.7 F 97.9 F Pulse Rate 87 78 Respiratory Rate 20 18 Blood Pressure 130/66 126/48 L Pulse Oximetry 98 94 Intake/Output Intake/Output: Intake & Output 10/10/23 10/11/23 10/12/23 10/13/23 23:59 23:59 23:59 23:59 Intake Total 120 0 0 Balance 120 0 0 Meds/Results Medications: Active Medications Generic Name Dose Route Start Last Admin Trade Name Freq PRN Reason Stop Dose Admin Acetaminophen 650 mg 10/03/23 15:50 Acetaminophen 650 Mg Suppository RECTAL Q4H PRN Fever Artificial Tears 1 drop 10/03/23 15:49 Artificial Tears Ophth Soln 15 Ml Bottle EACH EYE PRN PRN Dry Eye(s) Artificial Tears 1 drop 10/07/23 00:00 10/13/23 11:39 Artificial Tears Ophth Soln 15 Ml Bottle EACH EYE 1 drop Q12H JANEE Administration Bisacodyl 10 mg 10/03/23 15:50 Bisacodyl 10 Mg Suppository RECTAL DAILY PRN Constipation Glycopyrrolate 0.1 mg 10/03/23 15:50 Glycopyrrolate Inj (*Sp) 0.2 Mg/Ml Vial IV PUSH Q4H PRN secretions Haloperidol 5 mg 10/08/23 18:00 10/12/23 18:31 Haloperidol 5 Mg Tablet PO 5 mg QPM JANEE Administration Haloperidol Lactate 5 mg 10/03/23 15:45 10/04/23 20:27 Haloperidol Lactate 5 Mg/Ml Vial IM 5 mg Q6H PRN Administration AGITATION Lorazepam 1 mg 10/03/23 15:43 10/10/23 20:19 Lorazepam Inj (*Crx)
[2023-10-13] MEDS: HALOPERIDOL 5 MG TABLET PO (17:39)
[2023-10-13 20:00] VITALS: BP 120/49; PULSE 75; RESP 14; TEMP 36.6; O2SAT 95
[2023-10-14] MEDS: LORazepam (*CRX) 1 MG TABLET PO ×2 (05:55→12:40)
[2023-10-14 08:00] VITALS: BP 132/54; PULSE 90; RESP 18; TEMP 36.1; O2SAT 99
--- NOTE | 2023-10-14 12:19 | PM.IMPN ---
Progress Note: A&P Assessment and Plan (1) Palliative care encounter: Code(s): Z51.5 - Encounter for palliative care Status: Acute Assessment and Plan: Meets inpatient hospice criteria due to inability to control agitation and psychosis without parenteral medications. October 04: Symptoms manage well with a low paired all, lorazepam, morphine. Await disposition decision. October 05: Plan for discharge once symptoms are managed well for 24 hours with plan for Haldol Decanoate as outpatient. October 06: Trial of medication reduction initiated per family request. Discussed with hospice and floor RN's. Discussed with her spouse, Kun, at bedside. October 07: Meet inpatient hospice criteria due to intermittently requiring parenteral medications for control of agitation. Continue to seek balance between sedation and nutrition and socialization. Discussed care and prognosis with spouse at bedside. Await disposition. October 08: Denied admission to [facility] in [place] but accepted at [facility] in [place]. Unable to transfer due to protocol COVID-19 swab testing POSITIVE. October 09: Attempted to contact spouse, Kun, by phone and left VM. Increased medication due to agitation and potential injury. Morphine to 5 mg po q 8hr and Ativan to 1 mg po q 8hr. October 12: Comfortable. Anticipated discharge 10/13. October 13: Remains comfortable longterm requires 10 day isolation time after COVID diagnosis. Discussed care with spouse at bedside. October 14: Alternative discharge plan to start as opposed [facility] not acceptable to spouse as he feels it is not [facility] or [facility] [facility]. He is unable to care for her home due to his chronic illnesses and her decline in condition. She will continue on her 10-day COVID as inpatient as required by [facility]. (2) COVID-19: Code(s): U07.1 - COVID-19 Status: Acute Assessment and Plan: Asymptomatic Subjective Date/time seen: 10/14/23 12:19 Interval history: Continues to consume only a few bites of food per day. Sleeps most of the time. Review of Systems Review of Systems: ROS unobtainable: Yes unobtainable due to medical condition Exam Narrative: General:? Gaunt elderly female resting comfortably in hospital bed. Eyes:? Closed. Oral:? Mucosa pink moist and intact. Neck:? No JVD. Chest:? Clear to auscultation.? Effort normal. Heart:? Normal S1 and S2.? Rate regular.? No audible murmurs or gallops. Abdomen:? Bowel sounds active.? Soft.? Nontender.? No mass palpable. Extremities:? No pitting edema.? Musculoskeletal:? No gross deformity to visual inspection. Neurologic:? Cranial nerves symmetric to visual inspection. Psychological:? Sleeping and unresponsive to verbal or tactile stimuli. ? Objective Data Vital Signs Vital Signs: Vital Signs - 24 hr 10/13/23 20:00 10/13/23 20:00 10/14/23 08:00 Temperature 98 F 96.9 F L Pulse Rate 75 90 Respiratory Rate 14 18 Blood Pressure 120/49 L 132/54 L Pulse Oximetry 95 95 99 Oxygen Delivery Room Air Intake/Output Intake/Output: Intake & Output 10/11/23 10/12/23 10/13/23 10/14/23 23:59 23:59 23:59 23:59 Intake Total 0 120 118 Balance 0 120 118 Meds/Results Medications: Active Medications Generic Name Dose Route Start Last Admin Trade Name Freq PRN Reason Stop Dose Admin Acetaminophen 650 mg 10/03/23 15:50 Acetaminophen 650 Mg Suppository RECTAL Q4H PRN Fever Artificial Tears 1 drop 10/03/23 15:49 Artificial Tears Ophth Soln 15 Ml Bottle EACH EYE PRN PRN Dry Eye(s) Artificial Tears 1 drop 10/07/23 00:00 10/14/23 02:16 Artificial Tears Ophth Soln 15 Ml Bottle EACH EYE Not Given Q12H JANEE Bisacodyl 10 mg 10/03/23 15:50 Bisacodyl 10 Mg Suppository RECTAL DAILY PRN Constipation Haloperidol 5 mg 10/08/23 18:00 10/13/23 17:39 Haloperidol 5 Mg Tablet PO 5 mg QPM [facility]
[2023-10-14] MEDS: ARTIFICIAL TEARS OPHTH SOLN 15 ML BOTTLE 1 DROP EACH EYE (12:40)
--- NOTE | 2023-10-14 17:06 | PC.NURSE ---
Pt has been harder to arouse today. PO med pass is getting difficult.
[2023-10-14 20:00] VITALS: O2SAT 99
[2023-10-14] MEDS: MORPHINE SULFATE ORAL CONC SOL (*CRX) 10 MG/0.5 ML SYRINGE 5 MG PO (21:47)
--- NOTE | 2023-10-15 05:49 | PC.NURSE ---
patient difficult to arouse this AM. Unable to given PO medications.
[2023-10-15 08:00] VITALS: BP 104/43; PULSE 16; RESP 65; TEMP 36.2; O2SAT 96
[2023-10-15] MEDS: LORazepam (*CRX) 0.5 MG TABLET PO (10:35)
[2023-10-15] MEDS: LORazepam (*CRX) 1 MG TABLET PO (17:58)
[2023-10-15] MEDS: HALOPERIDOL 5 MG TABLET PO (17:58)
--- NOTE | 2023-10-15 18:10 | PM.IMPN ---
Progress Note: A&P Assessment and Plan (1) Palliative care encounter: Code(s): Z51.5 - Encounter for palliative care Status: Acute Assessment and Plan: Meets inpatient hospice criteria due to inability to control agitation and psychosis without parenteral medications. October 04: Symptoms manage well with a low paired all, lorazepam, morphine. Await disposition decision. October 05: Plan for discharge once symptoms are managed well for 24 hours with plan for Haldol Decanoate as outpatient. October 06: Trial of medication reduction initiated per family request. Discussed with hospice and floor RN's. Discussed with her spouse, Kun, at bedside. October 07: Meet inpatient hospice criteria due to intermittently requiring parenteral medications for control of agitation. Continue to seek balance between sedation and nutrition and socialization. Discussed care and prognosis with spouse at bedside. Await disposition. October 08: Denied admission to [facility] in [place] but accepted at [facility] in [place]. Unable to transfer due to protocol COVID-19 swab testing POSITIVE. October 09: Attempted to contact spouse, Kun, by phone and left VM. Increased medication due to agitation and potential injury. Morphine to 5 mg po q 8hr and Ativan to 1 mg po q 8hr. October 12: Comfortable. Anticipated discharge 10/13. October 13: [facility] after COVID diagnosis. Discussed care with spouse at bedside. October 14: Alternative discharge plan to start as opposed [facility] not acceptable to spouse as he feels it is not [facility] or [employer] [facility]. He is unable to care for her home due to his chronic illnesses and her decline in condition. She will continue on her 10-day COVID as inpatient as required by [facility]. October 15: Discussed with , Kun, at bedside that he feels [facility] is the only safe option for discharge for her. Due to COVID-19, they will not admit her until October 18. Subjective Date/time seen: 10/15/23 18:10 Interval history: Ate about half of her pureed supper. Eating little restless this evening. Fairly quiet through the day. Review of Systems Review of Systems: ROS unobtainable: Yes unobtainable due to medical condition Exam Narrative: General:? Gaunt elderly female resting comfortably in hospital bed. Eyes:? Closed. Oral:? Mucosa pink moist and intact. Neck:? No JVD. Chest:? Clear to auscultation.? Effort normal. Heart:? Normal S1 and S2.? Rate regular.? No audible murmurs or gallops. Abdomen:? Bowel sounds active.? Soft.? Nontender.? No mass palpable. Extremities:? No pitting edema.? Musculoskeletal:? No gross deformity to visual inspection. Neurologic:? Cranial nerves symmetric to visual inspection. Psychological:? Awake. Oriented person only. Restless. at bedside. ? Objective Data Vital Signs Vital Signs: Vital Signs - 24 hr 10/14/23 20:00 10/15/23 08:00 10/15/23 10:00 Temperature 97.1 F L Pulse Rate 16 L Respiratory Rate 65 H Blood Pressure 104/43 L Pulse Oximetry 99 96 Oxygen Delivery Room Air Room Air Intake/Output Intake/Output: Intake & Output 10/12/23 10/13/23 10/14/23 10/15/23 23:59 23:59 23:59 23:59 Intake Total 0 120 238 118 Balance 0 120 238 118 Meds/Results Medications: Active Medications Generic Name Dose Route Start Last Admin Trade Name Freq PRN Reason Stop Dose Admin Acetaminophen 650 mg 10/03/23 15:50 Acetaminophen 650 Mg Suppository RECTAL Q4H PRN Fever Artificial Tears 1 drop 10/03/23 15:49 Artificial Tears Ophth Soln 15 Ml Bottle EACH EYE PRN PRN Dry Eye(s) Artificial Tears 1 drop 10/07/23 00:00 10/15/23 12:23 Artificial Tears Ophth Soln 15 Ml Bottle EACH EYE Not Given Q12H JANEE Bisacodyl 10 mg 10/03/23 15:50 Bisacodyl 10 Mg Suppository RECTAL DAILY PRN
[2023-10-15 20:00] VITALS: O2SAT 96
[2023-10-16] MEDS: MORPHINE SULFATE ORAL CONC SOL (*CRX) 10 MG/0.5 ML SYRINGE 5 MG PO ×2 (05:14→21:03)
[2023-10-16] MEDS: LORazepam (*CRX) 1 MG TABLET PO ×4 (05:14→23:31)
[2023-10-16 08:00] VITALS: BP 112/38; PULSE 67; RESP 18; TEMP 36.4; O2SAT 100
[2023-10-16] MEDS: LORazepam (*CRX) 0.5 MG TABLET PO (10:03)
--- NOTE | 2023-10-16 16:14 | PM.IMPN ---
Progress Note: A&P Assessment and Plan (1) Palliative care encounter: Code(s): Z51.5 - Encounter for palliative care Status: Acute Assessment and Plan: Meets inpatient hospice criteria due to inability to control agitation and psychosis without parenteral medications. October 04: Symptoms manage well with a low paired all, lorazepam, morphine. Await disposition decision. October 05: Plan for discharge once symptoms are managed well for 24 hours with plan for Haldol Decanoate as outpatient. October 06: Trial of medication reduction initiated per family request. Discussed with hospice and floor RN's. Discussed with her spouse, Kun, at bedside. October 07: Meet inpatient hospice criteria due to intermittently requiring parenteral medications for control of agitation. Continue to seek balance between sedation and nutrition and socialization. Discussed care and prognosis with spouse at bedside. Await disposition. October 08: Denied admission to [facility] in [place] but accepted at [facility] in [place]. Unable to transfer due to protocol COVID-19 swab testing POSITIVE. October 09: Attempted to contact spouse, Kun, by phone and left VM. Increased medication due to agitation and potential injury. Morphine to 5 mg po q 8hr and Ativan to 1 mg po q 8hr. October 12: Comfortable. Anticipated discharge 10/13. October 13: Remains comfortable group home requires 10 day isolation time after COVID diagnosis. Discussed care with spouse at bedside. October 14: Alternative discharge plan to start as opposed [facility] not acceptable to spouse as he feels it is not [facility] or [facility] [facility]. He is unable to care for her home due to his chronic illnesses and her decline in condition. She will continue on her 10-day COVID as inpatient as required by [facility]. October 15: Discussed with , Kun, at bedside that he feels [facility] is the only safe option for discharge for her. Due to COVID-19, they will not admit her until October 18. Subjective Date/time seen: 10/16/23 16:14 Interval history: Awakens intermittently. Eats a few bites. Review of Systems Review of Systems: ROS unobtainable: Yes unobtainable due to medical condition Exam Narrative: General:? Gaunt elderly female resting comfortably in hospital bed. Eyes:? Closed. Oral:? Mucosa pink moist and intact. Neck:? No JVD. Chest:? Clear to auscultation.? Effort normal. Heart:? Normal S1 and S2.? Rate regular.? No audible murmurs or gallops. Abdomen:? Bowel sounds active.? Soft.? Nontender.? No mass palpable. Extremities:? No pitting edema.? Musculoskeletal:? No gross deformity to visual inspection. Neurologic:? Cranial nerves symmetric to visual inspection. Psychological:? Awake. Oriented person only. Moves spontaneously in bed. ? Objective Data Vital Signs Vital Signs: Vital Signs - 24 hr 10/15/23 20:00 10/16/23 08:00 10/16/23 08:00 Temperature 97.6 F Pulse Rate 67 Respiratory Rate 18 Blood Pressure 112/38 L Pulse Oximetry 96 100 Oxygen Delivery Room Air Room Air Intake/Output Intake/Output: Intake & Output 10/13/23 10/14/23 10/15/23 10/16/23 23:59 23:59 23:59 23:59 Intake Total 120 238 236 Balance 120 238 236 Meds/Results Medications: Active Medications Generic Name Dose Route Start Last Admin Trade Name Freq PRN Reason Stop Dose Admin Acetaminophen 650 mg 10/03/23 15:50 Acetaminophen 650 Mg Suppository RECTAL Q4H PRN Fever Artificial Tears 1 drop 10/03/23 15:49 Artificial Tears Ophth Soln 15 Ml Bottle EACH EYE PRN PRN Dry Eye(s) Artificial Tears 1 drop 10/07/23 00:00 10/16/23 10:03 Artificial Tears Ophth Soln 15 Ml Bottle EACH EYE Not Given Q12H JANEE Bisacodyl 10 mg 10/03/23 15:50 Bisacodyl 10 Mg Suppository RECTAL DAILY PRN Constipation Haloperidol 5 mg 10/08/23 18:00 10/15/23 17:58 H
[2023-10-16] MEDS: HALOPERIDOL 5 MG TABLET PO (17:30)
[2023-10-16 20:00] VITALS: BP 135/51; PULSE 67; PULSE 92; RESP 16; RESP 18; TEMP 36.5; O2SAT 100
[2023-10-16] MEDS: ARTIFICIAL TEARS OPHTH SOLN 15 ML BOTTLE 1 DROP EACH EYE (23:31)
[2023-10-17] MEDS: LORazepam (*CRX) 1 MG TABLET PO ×3 (05:50→20:47)
[2023-10-17] MEDS: MORPHINE SULFATE ORAL CONC SOL (*CRX) 10 MG/0.5 ML SYRINGE 5 MG PO ×3 (05:50→20:51)
[2023-10-17] MEDS: LORazepam (*CRX) 0.5 MG TABLET PO (11:41)
--- NOTE | 2023-10-17 11:42 | PM.IMPN ---
Progress Note: A&P Assessment and Plan (1) Palliative care encounter: Code(s): Z51.5 - Encounter for palliative care Status: Acute Assessment and Plan: Meets inpatient hospice criteria due to inability to control agitation and psychosis without parenteral medications. October 04: Symptoms manage well with a low paired all, lorazepam, morphine. Await disposition decision. October 05: Plan for discharge once symptoms are managed well for 24 hours with plan for Haldol Decanoate as outpatient. October 06: Trial of medication reduction initiated per family request. Discussed with hospice and floor RN's. Discussed with her spouse, Kun, at bedside. October 07: Meet inpatient hospice criteria due to intermittently requiring parenteral medications for control of agitation. Continue to seek balance between sedation and nutrition and socialization. Discussed care and prognosis with spouse at bedside. Await disposition. October 08: Denied admission to [facility] in [place] but accepted at [facility] in [place]. Unable to transfer due to protocol COVID-19 swab testing POSITIVE. October 09: Attempted to contact spouse, Kun, by phone and left VM. Increased medication due to agitation and potential injury. Morphine to 5 mg po q 8hr and Ativan to 1 mg po q 8hr. October 12: Comfortable. Anticipated discharge 10/13. October 13: Remains comfortable longterm requires 10 day isolation time after COVID diagnosis. Discussed care with spouse at bedside. October 14: Alternative discharge plan to start as opposed [facility] not acceptable to spouse as he feels it is not [facility] or [facility] [facility]. He is unable to care for her home due to his chronic illnesses and her decline in condition. She will continue on her 10-day COVID as inpatient as required by [facility]. October 15: Discussed with , Kun, at bedside that he feels [facility] is the only safe option for discharge for her. Due to COVID-19, they will not admit her until October 18. October 17: Anticipate discharge to [facility] 10/18. Subjective Date/time seen: 10/17/23 11:42 Interval history: Awakens intermittently. Eats a few bites. Review of Systems Review of Systems: ROS unobtainable: Yes unobtainable due to medical condition Exam Narrative: General:? Gaunt elderly female resting comfortably in hospital bed. Eyes:? Closed. Oral:? Mucosa pink moist and intact. Neck:? No JVD. Chest:? Clear to auscultation.? Effort normal. Heart:? Normal S1 and S2.? Rate regular.? No audible murmurs or gallops. Abdomen:? Bowel sounds active.? Soft.? Nontender.? No mass palpable. Extremities:? No pitting edema.? Musculoskeletal:? No gross deformity to visual inspection. Neurologic:? Cranial nerves symmetric to visual inspection. Psychological:? Awake. Oriented person only. Moves spontaneously in bed. ? Objective Data Vital Signs Vital Signs: Vital Signs - 24 hr 10/16/23 20:00 10/16/23 20:00 10/17/23 08:00 Temperature 97.7 F Pulse Rate 67 92 Respiratory Rate 18 16 Blood Pressure 135/51 L Pulse Oximetry 100 100 Oxygen Delivery Room Air Room Air Intake/Output Intake/Output: Intake & Output 10/14/23 10/15/23 10/16/23 10/17/23 23:59 23:59 23:59 23:59 Intake Total 238 236 0 0 Balance 238 236 0 0 Meds/Results Medications: Active Medications Generic Name Dose Route Start Last Admin Trade Name Freq PRN Reason Stop Dose Admin Acetaminophen 650 mg 10/03/23 15:50 Acetaminophen 650 Mg Suppository RECTAL Q4H PRN Fever Artificial Tears 1 drop 10/03/23 15:49 Artificial Tears Ophth Soln 15 Ml Bottle EACH EYE PRN PRN Dry Eye(s) Artificial Tears 1 drop 10/07/23 00:00 10/16/23 23:31 Artificial Tears Ophth Soln 15 Ml Bottle EACH EYE 1 drop Q12H JANEE Administration Bisacodyl 10 mg 10/03/23 15:50 Bisacodyl 10 Mg Suppository RECTAL
[2023-10-17 15:13] VITALS: BP 114/51; PULSE 80; RESP 18; TEMP 35.8; O2SAT 100
[2023-10-17 20:00] VITALS: BP 111/48; PULSE 95; RESP 17; TEMP 36.1; O2SAT 100
[2023-10-17] MEDS: HALOPERIDOL 5 MG TABLET PO (20:47)
[2023-10-18] MEDS: LORazepam (*CRX) 1 MG TABLET PO (00:18)
[2023-10-18] MEDS: MORPHINE SULFATE ORAL CONC SOL (*CRX) 10 MG/0.5 ML SYRINGE 5 MG PO (05:17)
[2023-10-18 08:00] VITALS: BP 124/51; PULSE 81; RESP 16; TEMP 36.2; O2SAT 99
== END 2023-10-18 09:09 | disposition hospice, inpatient (51) | DRG 951 ==
LOC: ANH2MED 10-06 10:32 → ANH3MEDSUR 10-06 14:46
PROVIDERS: Admitting Provider Internal Medicine; PCP Internal Medicine; Visit Provider Internal Medicine
DX: Z51.5 Encounter for palliative care (principal); U07.1 COVID-19; F01.511 Vascular dementia, unspecified severity, with agitation; I67.2 Cerebral atherosclerosis; Z66 Do not resuscitate
CPT/HCPCS: 87635; 96372; 96374; 99284; 99285; A9270; J1630; J2060; J2270